=== PATIENT | male | born 2005 | race Caucasian/White ===

== ENCOUNTER → 2023-03-22 | Outpatient (CLI) | payer OTHER ==
--- NOTE | 2023-03-22 14:22 | XR ---
EXAMINATION TYPE: XR chest 2V DATE OF EXAM: 03/22/2023 COMPARISON: NONE TECHNIQUE: PA and lateral views submitted. HISTORY: Preemployment physical FINDINGS: The lungs are clear and there is no pneumothorax, pleural effusion, or focal pneumonia. Heart size normal and no overt failure. Osseous structures demonstrate hypertrophic and degenerative changes of the spine. IMPRESSION: 1. No acute process.
== END | disposition home or self-care (01) ==
LOC: RADXRMAIN 14:01
PROVIDERS: ATTEND Family Medicine
DX: Z01.818 Encounter for other preprocedural examination (principal); T79.0XXA Air embolism (traumatic), initial encounter
CPT/HCPCS: 71046